=== PATIENT | male | born 1940 | race Caucasian/White ===

== ENCOUNTER 2016-04-12 14:05 | Inpatient (IN) ==
[2016-04-12] MEDS ORDERED: 0.9 % Sodium Chloride 500 ML IVC ONE ×2 (14:49→21:52)
--- NOTE | 2016-04-12 14:51 | Emergency Department Note ---
Disposition Clinical Impression: CHF exacerbation, New onset a-fib, Pleural effusion, bilateral, Elevated troponin I level Disposition: Admitted As Inpatient Condition: Fair General Adult HPI - General Chief complaint: ED Shortness of Breath/Dyspnea Stated complaint: "CHF" Time Seen by Provider: 04/12/16 14:42 Source: patient Limitations: no limitations - History of Present Illness Pain Scale: 0 - Related Data Home Medications Medication Instructions Recorded Confirmed No Known Home Drugs 04/12/16 04/12/16 Allergies Allergy/AdvReac Type Severity Reaction Status Date / Time No Known Allergies Allergy Verified 04/12/16 14:27 Past Medical History - Past Medical History Medical history: Reports: non-contributory - Social History Smoking Status: Never smoker Smokeless Tobacco Status: No Alcohol use: Reports: none Drug use: Reports: none Physical Exam - General Limitations: no limitations General appearance: alert, in no apparent distress Course Vital Signs Temperature 98.4 F 04/12/16 14:27 Pulse Rate 150 04/12/16 14:27 Respiratory Rate 15 04/12/16 14:27 Blood Pressure 133/100 04/12/16 14:27 O2 Sat by Pulse Oximetry 96 04/12/16 14:27 Temperature 97.4 F L 04/12/16 19:48 Pulse Rate 99 04/12/16 19:48 Respiratory Rate 22 04/12/16 19:48 Blood Pressure 88/70 04/12/16 19:52 O2 Sat by Pulse Oximetry 95 04/12/16 20:14 Oxygen Delivery Oxygen Delivery Nasal Cannula Medical Decision Making - Lab Data Result diagrams: 04/12/16 14:55 04/12/16 14:55 Lab Results 04/12/16 04/12/16 04/12/16 Range/Units 14:55 14:55 14:55 WBC 9.1 (4.3-11.1) K/mcL RBC 4.79 (4.19-5.50) M/mcL Hgb 13.0 (12.9-16.9) g/dL Hct 39.9 (37.5-50.1) % MCV 83.3 (83.0-100.0) fL MCH 27.1 L (28.0-33.3) pg MCHC 32.6 (31.6-35.5) g/dL RDW 14.1 (11.5-14.5) % Plt Count 250 (140-400) K/mcL MPV 10.1 (9.4-12.4) fL Immature Gran % 0.2 (0-4) % Seg Neutrophils % 58.9 % Lymphocytes % 29.7 % Monocytes % 9.1 % Eosinophils % 1.3 % Basophils % 0.8 % Neutrophils # 5.4 (1.6-8.9) K/mcL Lymphocytes # 2.7 (0.6-4.6) K/mcL Monocytes # 0.8 (0.0-1.3) K/mcL Eosinophils # 0.1 (0.0-0.6) K/mcL Basophils # 0.1 (0.0-0.2) K/mcL PT 13.2 H (9.4-12.1) Seconds INR 1.2 APTT 29.2 (26.0-36.0) Seconds Sodium 138 (136-145) mEq/L Potassium 4.2 (3.5-4.5) mEq/L Chloride 105 (98-109) mEq/L Carbon Dioxide 23 (19-29) mEq/L BUN 21 (8-26) mg/dL Creatinine 0.99 (0.72-1.25) mg/dL Est GFR ( Amer) > 60 (> 60) Est GFR (Non-Af Amer) > 60 (> 60) BUN/Creatinine Ratio 21 (6-26) Glucose 104 H (70-99) mg/dL Calculated Osmolality 289 (280-300) Calcium 9.5 (8.6-10.8) mg/dL Magnesium 2.0 (1.6-2.6) mg/dL Troponin I (0-0.03) ng/mL B-Natriuretic Peptide (0-100) pg/mL TSH 1.757 (0.350-4.840) mcIU/mL 04/12/16 04/12/16 Range/Units 14:55 14:55 WBC (4.3-11.1) K/mcL RBC (4.19-5.50) M/mcL Hgb (12.9-16.9) g/dL Hct (37.5-50.1) % MCV (83.0-100.0) fL MCH (28.0-33.3) pg MCHC (31.6-35.5) g/dL RDW (11.5-14.5) % Plt Count (140-400) K/mcL MPV (9.4-12.4) fL Immature Gran % (0-4) % Seg Neutrophils % % Lymphocytes % % Monocytes % % Eosinophils % % Basophils % % Neutrophils # (1.6-8.9) K/mcL Lymphocytes # (0.6-4.6) K/mcL Monocytes # (0.0-1.3) K/mcL Eosinophils # (0.0-0.6) K/mcL Basophils # (0.0-0.2) K/mcL PT (9.4-12.1) Seconds INR APTT (26.0-36.0) Seconds Sodium (136-145) mEq/L Potassium (3.5-4.5) mEq/L Chloride (98-109) mEq/L Carbon Dioxide (19-29) mEq/L BUN (8-26) mg/dL Creatinine (0.72-1.25) mg/dL Est GFR ( Amer) (> 60) Est GFR (Non-Af Amer) (> 60) BUN/Creatinine Ratio (6-26) Glucose (70-99) mg/dL Calculated Osmolality (280-300) Calcium (8.6-10.8) mg/dL Magnesium (1.6-2.6) mg/dL Troponin I 0.05 H* (0-0.03) ng/mL B-Natriuretic Peptide 1030 H (0-100) pg/mL TSH (0.350-4.840) mcIU/mL Critical Care Time Critical Care Time: Yes Total Critical Care Time: 30 Attestation: Patient presented in atrial flutter with RVR requiring Cardizem drip and admission to the medicine service Attestation Statement - Attestation Attestation: I examined this patient and my medical decision-making was reviewed with the REFERRAL AGENT/PA/Advanced Practice Nurse/Resident Physician. I agree with the documented findings, disposition and treatment plan as described except to the extent set forth below. Omkr-[id number] time provided in conjunction with Dr. Netltes Patient presents with tachycardia. ECG shows a narrow complex tachycardia suggestive of atrial flutter with rapid ventricular response. Patient appears in no acute distress. Per his spouse at bedside he has not seen a physician in 15 years and takes no medications other than aatc-zgy-jooaupc Mucinex and Robitussin. 15:33: Patient has a mildly elevated troponin and BNP. Chest x-ray image from previous facility reviewed by me with the resident physician. Cardizem drip initiated for rate control. Patient to be admitted to the medicine service
--- NOTE | 2016-04-12 14:56 | Emergency Department Note ---
Disposition Clinical Impression: New onset a-fib, Pleural effusion, bilateral, Elevated troponin I level CHF exacerbation Qualifiers: Congestive heart failure type: unspecified congestive heart failure type Qualified Code(s): I50.9 - Heart failure, unspecified Disposition: Admitted As Inpatient Condition: Fair Referrals: NO,PCP [Primary Care Provider] - Forms: ED Satisfaction Letter Time of Disposition: 17:04 Arrhythmia/Palpitations HPI - General Chief Complaint: ED Shortness of Breath/Dyspnea Stated Complaint: "CHF" Time Seen by Provider: 04/12/16 14:42 Source: patient Limitations: no limitations Nursing Notes Reviewed: Yes Vital Signs Reviewed: Yes - History of Present Illness HPI Narrative: 76-year-old male sent from urgent care in [facility], he presents after an acute episode of palpitations that he felt this morning. Patient was at rest, started feeling his heart racing. Patient had previously been having about a week of shortness of breath of unclear etiology. He states that he has been taking Robitussin lately and wonders if this is related. Patient denies history of CHF but reports a remote echocardiogram several years ago. History of hypertension. Patient denies any chest pain currently, he does state that he has difficulty catching his breath, and some exertional dyspnea today. Denies nausea vomiting diarrhea constipation hematuria or dysuria. Pt Subjective Complaint: rapid heart beat, irregular heart beat, atrial fibrillation Onset (ago): hour(s) Time: 08:00 Duration: constant Severity: moderate Context: occurred during rest Arrhythmia History: atrial fibrillation Associated symptoms: Reports: shortness of breath. Denies: chest pain, near- syncope, nausea, vomiting, anxiety, diaphoresis - Related Data Home Medications Medication Instructions Recorded Confirmed No Known Home Drugs 04/12/16 04/12/16 Allergies Allergy/AdvReac Type Severity Reaction Status Date / Time No Known Allergies Allergy Verified 04/12/16 14:27 Review of Systems: All systems were reviewed with historian and negative except as per below, or as documented in the HPI. Constitutional: Denies: fever, chills, weight changes Eyes: Denies: vision changes, eye pain ENT: Denies: nasal congestion, sore throat CV: Palpitations denies pedal edema, chest pain Resp: As per dyspnea denies hemoptysis GI: Denies: abdominal pain, N/V/D/C, hematochezia, melena Denies: dysuria, hematuria MSK: Denies: back pain, neck pain, extremity pain Neuro: Denies: NEGRETE, weakness, sensory changes, gait difficulty Psych: Denies: anxiety, depression All systems ED: reviewed and negative except as stated. Past Medical History - Past Medical History Attestation: Yes The following information was validated with the patient. Source: patient Medical history: Reports: non-contributory - Social History Smoking Status: Never smoker Smokeless Tobacco Status: No Alcohol use: Reports: none Drug use: Reports: none Physical Exam Constitutional: Thin elderly male appears stated age, mildly uncomfortable, heart rate 150s, irregular Neck: normal inspection, neck is supple, trachea midline, no JVD Resp: Diminished breath sounds bilaterally, right greater than left CV: Irregularly irregular, tachycardia, diminished heart sounds bilaterally GI: normal inspection, Soft, NTND, BS present and normoactive Back: normal inspection, no tenderness to palpation MSK: normal inspection, bilateral UE and LE with normal ROM and no deformities Psych: normal mood, normal affect Skin: No rashes, skin warm, dry, intact - General Limitations: no limitations General appearance: alert, in no apparent distress Course Course Narrative: 76-year-old male with new onset atrial fibrillation versus atrial flutter 150s, no evidence of ischemia on EKG, we will try Lopressor first chest pain workup reasses - Reevaluation(s) Reevaluation #1: No improvement after 5 mg of Lopressor, will began Cardizem bolus and drip, troponin came back 0.05, 324 mg of aspirin ordered, patient currently stable still plan to admit to hospitalist service for A. fib RVR CHF exacerbation bilateral pleural effusions Time: 15:38 Reevaluation #2: Admitted to Dr. Mtz Time: 17:04 Vital Signs Temperature 98.4 F 04/12/16 14:27 Pulse Rate 150 04/12/16 14:27 Respiratory Rate 15 04/12/16 14:27 Blood Pressure 133/100 04/12/16 14:27 O2 Sat by Pulse Oximetry 96 04/12/16 14:27 Temperature 98.4 F 04/12/16 14:27 Pulse Rate 147 04/12/16 15:25 Respiratory Rate 20 04/12/16 15:25 Blood Pressure 141/110 04/12/16 15:25 O2 Sat by Pulse Oximetry 98 04/12/16 15:25 Oxygen Delivery Oxygen Delivery Nasal Cannula Arrhythmia/Palpitations - [facility] Narrative Medical decision making narrative: 76-year-old male with new onset atrial fibrillation found to have heart failure BNP 1000 troponin mildly elevated 0.05 suspect demand ischemia given rate, started on Cardizem drip after bolus, is not cardioverted yet his heart rate is currently 130s, irregular, patient is in no acute distress, admitted to hospitalist service this in stable condition also at urgent care he did have evidence of bilateral pleural effusions with right sided greater than left sided moderate effusion, there is no respiratory distress at the time of ED disposition - Differential Diagnosis Differential Diagnosis: Likely: palpitations, sinus tachycardia, artial arrhythmia, supraventricular tachycardia, ventricular tachycardia - Medical Records Medical records reviewed: Yes I reviewed the patient's medical records. - Lab Data Lab results reviewed: Yes I reviewed the patient's lab results. Result diagrams: 04/12/16 14:55 04/12/16 14:55 Lab Results 04/12/16 04/12/16 04/12/16 Range/Units 14:55 14:55 14:55 WBC 9.1 (4.3-11.1) K/mcL RBC 4.79 (4.19-5.50) M/mcL Hgb 13.0 (12.9-16.9) g/dL Hct 39.9 (37.5-50.1) % MCV 83.3 (83.0-100.0) fL MCH 27.1 L (28.0-33.3) pg MCHC 32.6 (31.6-35.5) g/dL RDW 14.1 (11.5-14.5) % Plt Count 250 (140-400) K/mcL MPV 10.1 (9.4-12.4) fL Immature Gran % 0.2 (0-4) % Seg Neutrophils % 58.9 % Lymphocytes % 29.7 % Monocytes % 9.1 % Eosinophils % 1.3 % Basophils % 0.8 % Neutrophils # 5.4 (1.6-8.9) K/mcL Lymphocytes # 2.7 (0.6-4.6) K/mcL Monocytes # 0.8 (0.0-1.3) K/mcL Eosinophils # 0.1 (0.0-0.6) K/mcL Basophils # 0.1 (0.0-0.2) K/mcL PT 13.2 H (9.4-12.1) Seconds INR 1.2 APTT 29.2 (26.0-36.0) Seconds Sodium 138 (136-145) mEq/L Potassium 4.2 (3.5-4.5) mEq/L Chloride 105 (98-109) mEq/L Carbon Dioxide 23 (19-29) mEq/L BUN 21 (8-26) mg/dL Creatinine 0.99 (0.72-1.25) mg/dL Est GFR ( Amer) > 60 (> 60) Est GFR (Non-Af Amer) > 60 (> 60) BUN/Creatinine Ratio 21 (6-26) Glucose 104 H (70-99) mg/dL Calculated Osmolality 289 (280-300) Calcium 9.5 (8.6-10.8) mg/dL Magnesium 2.0 (1.6-2.6) mg/dL Troponin I (0-0.03) ng/mL B-Natriuretic Peptide (0-100) pg/mL 04/12/16 04/12/16 Range/Units 14:55 14:55 WBC (4.3-11.1) K/mcL RBC (4.19-5.50) M/mcL Hgb (12.9-16.9) g/dL Hct (37.5-50.1) % MCV (83.0-100.0) fL MCH (28.0-33.3) pg MCHC (31.6-35.5) g/dL RDW (11.5-14.5) % Plt Count (140-400) K/mcL MPV (9.4-12.4) fL Immature Gran % (0-4) % Seg Neutrophils % % Lymphocytes % % Monocytes % % Eosinophils % % Basophils % % Neutrophils # (1.6-8.9) K/mcL Lymphocytes # (0.6-4.6) K/mcL Monocytes # (0.0-1.3) K/mcL Eosinophils # (0.0-0.6) K/mcL Basophils # (0.0-0.2) K/mcL PT (9.4-12.1) Seconds INR APTT (26.0-36.0) Seconds Sodium (136-145) mEq/L Potassium (3.5-4.5) mEq/L Chloride (98-109) mEq/L Carbon Dioxide (19-29) mEq/L BUN (8-26) mg/dL Creatinine (0.72-1.25) mg/dL Est GFR ( Amer) (> 60) Est GFR (Non-Af Amer) (> 60) BUN/Creatinine Ratio (6-26) Glucose (70-99) mg/dL Calculated Osmolality (280-300) Calcium (8.6-10.8) mg/dL Magnesium (1.6-2.6) mg/dL Troponin I 0.05 H* (0-0.03) ng/mL B-Natriuretic Peptide 1030 H (0-100) pg/mL - Radiology Data Radiology results reviewed: Yes I reviewed the patient's radiology results. - EKG Data EKG attestation: Yes I reviewed and interpreted this EKG. Rate: tachycardia Rhythm: A.Fib (151 bpm QRS 85 QTC 281) Encampment/QRS: normal Interpretation: no acute changes - Core Measures AMI Core Measures Followed: No Measure Exclusions: not indicated
[2016-04-12 15:03] LABS: Basophils # 0.1 K/mcL (0.0-0.2); Basophils % 0.8 %; Eosinophils # 0.1 K/mcL (0.0-0.6); Eosinophils % 1.3 %; Hematocrit 39.9 % (37.5-50.1); Immature Granulocytes % 0.2 % (0-4); Lymphocytes # 2.7 K/mcL (0.6-4.6); Lymphocytes % 29.7 %; Mean Corpuscular HGB Conc 32.6 g/dL (31.6-35.5); Mean Corpuscular Hemoglobin 27.1 pg (28.0-33.3); Mean Corpuscular Volume 83.3 fL (83.0-100.0); Mean Platelet Volume 10.1 fL (9.4-12.4); Monocytes # 0.8 K/mcL (0.0-1.3); Monocytes % 9.1 %; Neutrophils # 5.4 K/mcL (1.6-8.9); Platelet Count 250 K/mcL (140-400); Red Blood Count 4.79 M/mcL (4.19-5.50); Red Cell Distribution Width 14.1 % (11.5-14.5); Segmented Neutrophils % 58.9 %
[2016-04-12] MEDS: *HR* Metoprolol 5 MG/5 ML VIAL IVP ONE ×2 (15:04→18:36)
[2016-04-12 15:09] LABS: INR 1.2; Prothrombin Time 13.2 Seconds (9.4-12.1)
[2016-04-12 15:12] LABS: Activated Partial Thrombo Time 29.2 Seconds (26.0-36.0)
[2016-04-12 15:15] LABS: BUN/Creatinine Ratio 21 (6-26); Blood Urea Nitrogen 21 mg/dL (8-26); Calcium 9.5 mg/dL (8.6-10.8); Carbon Dioxide 23 mEq/L (19-29); Chloride 105 mEq/L (98-109); Glucose 104 mg/dL (70-99); Osmolality,Calculated 289 (280-300); Potassium 4.2 mEq/L (3.5-4.5); Sodium 138 mEq/L (136-145); eGFR For African Americans > 60 (> 60); eGFR For Non-African Americans > 60 (> 60)
[2016-04-12] MEDS ORDERED: Aspirin 325 MG TABLET PO ONE (15:29)
[2016-04-12 15:38] LABS: Thyroid Stimulating Hormone 1.757 mcIU/mL (0.350-4.840)
[2016-04-12] MEDS ORDERED: 0.9 % Sodium Chloride 250 ML ONE (16:18)
[2016-04-12] MEDS ORDERED: Naloxone 0.4 MG/ML INJ IVP PRN (17:17)
[2016-04-12] MEDS ORDERED: Acetaminophen 325 MG TABLET PO PRN (17:17)
--- NOTE | 2016-04-12 17:30 | Internal Med History&Physical ---
Date of Encounter: 04/14/16 Time of Encounter: 17:24 Assessment and Plan (1) New onset a-fib Current visit: Yes Status: Acute New onset of atrial fibrillation: Patient has new onset of atrial fibrillation likely has 2 is to 1. No previous cardiac history. [id number] score is 3 Plan: -Admitted as an inpatient. -Cardiac diet. -IV Cardizem 5 mg per hour to start and titrate to get the heart rate between 90 and 110. - Anticoagulation with 1 mg/kg Lovenox. - Cardiology evaluation after a echocardiogram. -Fall precaution. (2) Elevated troponin I level Current visit: Yes Status: Acute Likely secondary to atrial fibrillation with rapid ventricular rate (3) Congestive heart failure Current visit: Yes Status: Chronic Clinical diagnosis which needs further workup Qualifiers: Congestive heart failure type: systolic Congestive heart failure chronicity : unspecified congestive heart failure chronicity Qualified Code(s): I50.20 - Unspecified systolic (congestive) heart failure (4) DVT prophylaxis Current visit: Yes Status: Acute lovenox Medical decision making: Patient may worsen and has a zhka-wn-gqvwcesa risk of worsening cardiac perfusion. Internal Medicine - H&P: HPI Chief complaint: palpitations Admitted From: Emergency Dept Plans for Post Hospital Care: Home History of present illness: PCP: No PCP, has not seen doctor in last 15 years. HPI: Patient is ongoing weakness and shortness of breath for more than 2 weeks. Patient also complaining of occasional cough with palpitations. Patient was taking viac-pok-xxbhiic medication for the same for the past 1 week. In the last 48 hours patient's symptom worsen. Patient's shortness of breath was associated with the palpitations. Due to same patient went to urgent care at [facility] this morning. Patient was sent from [facility] as it was noted that his heart rate was more than 150. Patient denies chest pain, dizziness, syncope, abdominal pain, vomiting or diarrhea. Course in the ER: Patient was evaluated. EKG was done. EKG was suggestive of atrial fibrillation with rapid ventricular rate. Patient was started on Cardizem drip. Rate was controlled. Reason for admission: New-onset of atrial fibrillation with rapid ventricular. Patient needs intravenous medication therapy. Family history: Noncontributory Past Med Surg Social Fam HX - Past Medical History Medical history: non-contributory - Social History Smoking Status: Never smoker Smokeless Tobacco Status: No Alcohol use: none Drug use: none Internal Medicine - H&P: Meds No Known Home Drugs 04/12/16 [History] Allergies No Known Allergies Allergy (Verified 04/12/16 14:27) All Systems PM: A 10-system review of systems was performed and is negative for pertinent findings except as documented above in the HPI. - Constitutional Constitutional: no chills, no fever(s), no night sweats - EENT Eyes: no change in vision, no discharge, no pain, no photophobia Ears: no ear discharge, no ear pain, no tinnitus Nose, mouth and throat: no dysphagia, no nasal discharge, no neck pain, no sore throat - Cardiovascular Cardiovascular ROS IM: palpitations, no chest pain, no diaphoresis, no dyspnea, no lightheadedness, no syncope - Respiratory Respiratory: no cough, no dyspnea, no wheezing, no excessive phlegm production - Gastrointestinal Gastrointestinal: no abdominal pain, no diarrhea, no hematemesis, no hematochezia, no melena, no nausea, no vomiting - Musculoskeletal Musculoskeletal ROS IM: no numbness, no tingling - Integumentary Integumentary IM: no rash, no unusual bruising - Neurological Neurological ROS: no confusion, no convulsions, no focal weakness, no numbness, no tingling, no tremor(s) - Hematologic/Lymphatic Hematologic/Lymphatic: no easy bruising - Constitutional Vitals: Temp Pulse Resp BP Pulse Ox 98.4 F 131 18 115/92 96 04/12/16 14:27 04/12/16 16:54 04/12/16 16:59 04/12/16 16:59 04/12/16 16:54 General appearance: Present: A&O X 3, pleasant, no acute distress, answers questions appropriately - Head Head exam: Present: atraumatic, normocephalic - Eye Eye exam: Present: PERRL, conjuntiva pink, sclera anicteric Pupils: Present: PERRL - Neck Neck exam general surgery: Present: supple, trachea midline. Absent: lymphadenopathy - Respiratory Respiratory exam: Present: CTAB. Absent: accessory muscle use, rales, rhonchi, wheezes - Cardiovascular Cardiovascular exam: Present: RRR, +S1, +S2. Absent: diastolic murmur, gallop, rubs, systolic murmur - GI/Abdominal GI/Abdominal exam: Present: normal bowel sounds, soft, no peritoneal signs. Absent: distended, tenderness - Extremities Exam Extremities exam: Present: warm, radial pulses palpable and symetrical. Absent : calf tenderness, cyanotic, pedal edema - Neurological Exam Neurological exam: Present: CN II-XII intact, oriented X3, no focal deficits. Absent: pronater drift, facial droop, speech deficit - Skin Skin exam: Present: dry, intact Internal Med - H&P Results - Labs CBC & Chem 7: 04/13/16 00:28 04/13/16 00:28
[2016-04-12] MEDS ORDERED: *HR* Metoprolol 5 MG/5 ML VIAL IVP ONE (18:28)
[2016-04-12] MEDS: *HR* Enoxaparin 60 MG/0.6 ML SYRINGE SQ SCH (18:33)
[2016-04-13 01:06] LABS: Basophils # 0.1 K/mcL (0.0-0.2); Basophils % 0.8 %; Eosinophils # 0.2 K/mcL (0.0-0.6); Eosinophils % 2.1 %; Hematocrit 33.8 % (37.5-50.1); Immature Granulocytes % 0.4 % (0-4); Lymphocytes # 2.3 K/mcL (0.6-4.6); Lymphocytes % 30.2 %; Mean Corpuscular HGB Conc 32.5 g/dL (31.6-35.5); Mean Corpuscular Volume 82.8 fL (83.0-100.0); Mean Platelet Volume 10.6 fL (9.4-12.4); Monocytes # 0.8 K/mcL (0.0-1.3); Monocytes % 10.1 %; Neutrophils # 4.2 K/mcL (1.6-8.9); Platelet Count 239 K/mcL (140-400); Red Blood Count 4.08 M/mcL (4.19-5.50); Red Cell Distribution Width 14.2 % (11.5-14.5); Segmented Neutrophils % 56.4 %
[2016-04-13 01:27] LABS: Alanine Aminotransferase 25 Units/L (0-55); Albumin 3.2 g/dL (3.5-5.0); Albumin/Globulin Ratio 1.1 (1.1-2.2); Alkaline Phosphatase 101 Units/L (38-126); Aspartate Amino Transferase 32 Units/L (5-34); BUN/Creatinine Ratio 23 (6-26); Blood Urea Nitrogen 21 mg/dL (8-26); Calcium 8.7 mg/dL (8.6-10.8); Carbon Dioxide 22 mEq/L (19-29); Chloride 106 mEq/L (98-109); Chol/HDL Ratio 3.2 (0-4.9); Cholesterol 110 mg/dL (< 200); Globulin 2.8 g/dL (2.4-3.5); Glucose 105 mg/dL (70-99); HDL Cholesterol 34 mg/dL (40-59); LDL Cholesterol,Calculated 62 mg/dL (0-99); Magnesium 1.9 mg/dL (1.6-2.6); Osmolality,Calculated 285 (280-300); Phosphorous 3.8 mg/dL (2.3-4.7); Potassium 4.1 mEq/L (3.5-4.5); Sodium 136 mEq/L (136-145); Triglycerides 72 mg/dL (< 150); eGFR For African Americans > 60 (> 60); eGFR For Non-African Americans > 60 (> 60)
[2016-04-13] MEDS ORDERED: Metoprolol XL (24 HR) Succ 25 MG TAB.ER.24H PO SCH (06:57)
[2016-04-13] MEDS: *HR* Enoxaparin 60 MG/0.6 ML SYRINGE SQ SCH ×3 (06:59→17:16)
[2016-04-13] MEDS: *HR* Metoprolol 5 MG/5 ML VIAL IVP PRN ×3 (07:09→21:20)
[2016-04-13] MEDS ORDERED: *HR* Morphine 2 MG/ML SYRINGE ONE (07:21)
[2016-04-13] MEDS: *HR* Digoxin 0.5 MG/2 ML AMPUL IVP STA ×3 (07:32→09:30)
[2016-04-13] MEDS ORDERED: *HR* Morphine 2 MG/ML SYRINGE IVP ONE (07:35)
[2016-04-13] MEDS ORDERED: Furosemide 20 MG/2 ML VIAL IVP ONE (08:45)
--- NOTE | 2016-04-13 09:58 | Electrocardiograph Report ---
[address] [address] Test Date: 2016-04-12 Pat Name: Micah Rodriguez Department: 103 Room: [facility] Gender: M Count Room Clerk: : 1940 Requested By: Daryl Nettles Order Number: [id number] Reading MD: Carla Figueroa Measurements Intervals [place] Rate: 151 P: FL: 0 QRS: 67 QRSD: 85 T: 120 QT: 195 QTc: 281 Interpretive Statements ATRIAL FLUTTER/TACHYCARDIA WITH RAPID VENTRICULAR RESPONSE NONSPECIFIC ST \T\ T-WAVE ABNORMALITY ABNORMAL RHYTHM ECG Electronically Signed On 04-13-2016 9:57:16 EST by Carla Figueroa
--- NOTE | 2016-04-13 10:55 | ECHO - Doppler Report ---
Echocardiogram Name: Micah Rodriguez Date of Study: 04/13/2016 Date: 1940 Ht: 68.0 in Medical Record#: [id number] Age: 76 Wt: 141.0 lb Gender: Male BSA: 1.76 Order #: [id number] Location: [facility] Room #: [id number] Reading Physician: Nash Murphy MD, [facility] Heat Treat Technician: Echo Gong RD, RVT Ordering Physician: Ulises Mtz MD Primary Physician: None Indications: Atrial Fibrillation Impressions: Mild-moderate LV systolic dysfunction, LVEF 40%. There are regional wall motion abnormalities, see diagram below. Mild asymmetric LV septal hypertrophy. No evidence of LVOT obstruction. Indeterminate diastolic function due to atrial flutter. Normal right ventricular size and function. Moderate-severely dilated left atrium. Moderate-severely dilated right atrium. Mildly thickened mitral valve leaflets. There is restricted motion of the posterior mitral valve leaflet with incomplete leaflet coaptation. Severe mitral regurgitation. Mild-moderate tricuspid regurgitation. Mild pulmonic regurgitation. Mild pulmonary hypertension. Estimated RVSP = 44 mmHg. Recommend cardiology consultation. Abnormal results were discussed with the ordering physician. Cardiology consult team was also notified. Left Ventricular Wall Motion: Rest Echo Findings The apex, apical septal, apical lateral, mid anterior lateral, mid anterior septal and mid inferior lateral dunaway were hypokinetic. All other wall segments showed normal motion. Findings: Study Quality * Technically adequate exam. ECG Findings * Atrial flutter. Left Ventricle * Mild-moderate LV systolic dysfunction, LVEF 40%. There are regional wall motion abnormalities, see diagram below. * Mild asymmetric LV septal hypertrophy. No evidence of LVOT obstruction. * Indeterminate diastolic function due to atrial flutter. Right Ventricle * Normal right ventricular size and function. Left Atrium * Moderate-severely dilated left atrium. Right Atrium * Moderate-severely dilated right atrium. Aorta * Normally sized aortic root. Pericardium * There is a trivial pericardial effusion present. IVC * The IVC is borderline dilated. Aortic Valve * Trileaflet aortic valve. * Mildly sclerotic aortic valve leaflets. * No aortic stenosis. * Trace aortic regurgitation. Mitral Valve * Mildly thickened mitral valve leaflets. There is restricted motion of the posterior mitral valve leaflet with incomplete leaflet coaptation. * No mitral stenosis. * Severe mitral regurgitation. Tricuspid Valve * Normal tricuspid valve structure. * No tricuspid stenosis. * Mild-moderate tricuspid regurgitation. * Mild pulmonary hypertension. Estimated RVSP = 44 mmHg. Pulmonic Valve * Pulmonic valve not well visualized. * No pulmonic stenosis. * Mild pulmonic regurgitation. Measurements: BP: 106/ 96 2D Normal Values RVIDd: 3.10 cm IVSd: 1.20 cm 0.6 - 1.0 cm LVIDd: 4.40 cm 3.7 - 5.6 cm LVPWd: .90 cm 0.6 - 1.1 cm LVIDs: 2.60 cm 1.5 - 3.6 cm AO: 3.30 cm < 4.0 cm LA volume: 78 Tricuspid Valve TV Regurg Peak Grad: 36.00mmHg TV Regurg Peak Sumit: 2.99m/sec Updated by Nash Murphy MD, [facility] on 04/13/2016 10:47:23 AM electronically signed on 04/13/2016 10:48:14 AM with status of Final Wall Motion Branch: 1=Normal, 2=Hypokinesis, 3=Akinesis, 4=Dyskinesis, 5=Aneurysmal, 6=Hyperkinetic, X=Not Visualized (Blank)=Missing
--- NOTE | 2016-04-13 11:25 | Internal Med Progress Note ---
Date of Encounter: 04/13/16 Time of Encounter: 11:24 - Assessment and plan (1) Atrial flutter Current Visit: Yes Status: Acute Assessment and plan: New-onset; has been on IV Cardizem drip, currently rate-controlled; noted to have low normal BP; will taper off Cardizem drip and start PO Metoprolol for now ; continue therapeutic Lovenox for anticoagulation; Cardiology consult appreciated; plan for LHC in am and decide on ablation vs MAZE procedure; Qualifiers: Atrial flutter type: atypical Qualified Code(s): I48.4 - Atypical atrial flutter (2) Chest pain Current Visit: Yes Status: Acute Assessment and plan: improving; use PRN IV Morphine for recurrent chest pain, likely tachycardia- induced; Qualifiers: Chest pain type: unspecified Qualified Code(s): R07.9 - Chest pain, unspecified (3) Elevated troponin I level Current Visit: Yes Status: Acute Assessment and plan: mild adynamic Troponin leak, likely tachycardia-induced; continue Telemetry monitoring and HR control; Cardiology consult appreciated; plan for LHC in am; (4) Pleural effusion, bilateral Current Visit: Yes Status: Acute (5) Severe mitral regurgitation Current Visit: Yes Status: Chronic Assessment and plan: Echocardiogram shows decreased EF 40%, moderate-severe LA and RA dilation, severe MR, mild-moderate TR, mild pulmonary HTN; mitral valve disease appears to be ischemic in appearance per Cardiology; plan for LHC and decide on further management; agree with beta-christiane, diuretics; ACEI at the time of discharge; (6) Congestive heart failure Current Visit: Yes Status: Chronic Assessment and plan: 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 Received 10 mg IV Cardizem, 0.25 g IV digoxin, 5 mg IV metoprolol during rapid response.also received 2 mg IV morphine with improvement in chest pain. Currently chest pain-free during rounds. No shortness of breath, palpitations; has not seen a physician in 15years, no known medical history; plan of care explained to patient and at bedside; - Constitutional Vitals: Temp Pulse Resp BP Pulse Ox 97.7 F 85 14 103/70 95 04/13/16 04:20 04/13/16 09:15 04/13/16 08:45 04/13/16 09:15 04/13/16 08:30 General appearance: Present: A&O X 3, answers questions appropriately - Head Head exam: Present: atraumatic, normocephalic - Neck Neck exam general surgery: Present: supple, trachea midline. Absent: lymphadenopathy - Respiratory Respiratory exam: Present: CTAB, wheezes (mild wheezing B/L scattered, posteriorly). Absent: accessory muscle use, rales, rhonchi - Cardiovascular Cardiovascular exam: Present: RRR, +S1, +S2. Absent: diastolic murmur, gallop, rubs, systolic murmur - GI/Abdominal GI/Abdominal exam: Present: normal bowel sounds, soft, no peritoneal signs. Absent: distended, tenderness - Extremities Exam Extremities exam: Present: full ROM, warm, radial pulses palpable and symetrical. Absent: calf tenderness, cyanotic, pedal edema - Neurological Exam Neurological exam: Present: CN II-XII intact, oriented X3, no focal deficits. Absent: pronater drift, facial droop, speech deficit - Skin Skin exam: Present: dry, intact Internal Medicine: Result - Labs CBC & Chem 7: 04/13/16 00:28 04/13/16 00:28 Labs: Short CBC 04/13/16 Range/Units 00:28 WBC 7.5 (4.3-11.1) K/mcL Hgb 11.0 L D (12.9-16.9) g/dL Hct 33.8 L (37.5-50.1) % Plt Count 239 (140-400) K/mcL Neutrophils # 4.2 (1.6-8.9) K/mcL BMP 04/13/16 00:28 Sodium 136 Potassium 4.1 Chloride 106 Carbon Dioxide 22 BUN 21 Creatinine 0.91 Glucose 105 H Calcium 8.7 Cardiac Enzymes 04/12/16 04/13/16 04/13/16 Range/Units 22:31 00:28 05:38 Troponin I 0.04 H* 0.04 H* 0.05 H* (0-0.03) ng/mL Liver Function 04/13/16 Range/Units 00:28 Total Bilirubin 1.0 (0.2-1.2) mg/dL AST 32 (5-34) Units/L ALT 25 (0-55) Units/L Alkaline Phosphatase 101 (38-126) Units/L Albumin 3.2 L (3.5-5.0) g/dL - ABG Interpretation ABG results: PT/INR, D-dimer PT 13.2 Seconds (9.4-12.1) H 04/12/16 14:55 Consult Discharge Plan - Plan Referrals: Tono Roth MD [Non-Partnered Physician] -
--- NOTE | 2016-04-13 11:52 | Electrocardiograph Report ---
[address] [place] [address] Test Date: 2016-04-13 Pat Name: Micah Rodriguez Department: 111 Room: 2NE32 Gender: M Finance Consultant: : 1940 Requested By: Apple Friedman Order Number: [id number] Reading MD: Carla Figueroa Measurements Intervals [place] Rate: 150 P: [place]: 0 QRS: 73 QRSD: 90 T: 120 QT: 171 QTc: 257 Interpretive Statements ATRIAL FLUTTER WITH RAPID VENTRICULAR RESPONSE POSSIBLE INFERIOR MYOCARDIAL INFARCTION, PROBABLY OLD WITH POSTERIOR EXTENSION Electronically Signed On 04-13-2016 11:50:55 EST by Carla Figueroa
--- NOTE | 2016-04-13 12:11 | Cardiology Consult Note ---
Date of Encounter: 04/13/16 Time of Encounter: 12:07 Assessment and Plan (1) CHF exacerbation Current Visit: Yes Status: Acute Echo EF 40% with regional wall motion abnormalities--new diagnosis. CXR with bilateral pleural effusions--R>L. Initial BNP 1030, then 833. Has received one time dose of 20mg IV Lasix with improvement in dyspnea. Will diurese with IV Lasix 20mg BID. Recommend strict I/O, Na and fluid restriction, daily weights. K 4.1, Mag 1.9. Will need ischemic evaluation when able to lie flat. Possible LHC tomorrow. R/B/ A discussed. Pt and want to discuss with son before agreeing to proceed. Qualifiers: Congestive heart failure type: combined Qualified Code(s): I50.43 - Acute on chronic combined systolic (congestive) and diastolic (congestive) heart failure (2) Cardiomyopathy Current Visit: Yes Status: Acute EF 40% with regional wall motion abnormalities. Presumed ischemic until proven otherwise. Also with severe MR that is ischemic appearing in nature. Recommend [facility] for evaluation. R/B/A discussed. Pt and want to discuss with son first. Switch cardizem to BB. Recommend adding LOU-I prior to discharge if BP and renal function allow. Will not add at this time since we are diuresing and anticipate plan for LHC. Qualifiers: Cardiomyopathy type: unspecified Qualified Code(s): I42.9 - Cardiomyopathy , unspecified (3) Atrial flutter Current Visit: Yes Status: Acute Reviewed with Dr. Lee--appears to be atypical Atrial Flutter. Will review with EP, Dr. Micah Figueroa tomorrow. New diagnosis, unsure of onset. Currently on Cardizem gtt with rates in the 70s. Since EF is 40% and BP is marginal, recommend switching to BB for rate control. Will stop cardizem gtt and start Toprol XL. CHADSVASC currently 3 for CHF and age, but if has confirmed CAD diagnosis, will be higher. 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 Therapeutic Lovenox for now since he needs LHC. Mag 1.9, K 4.1, TSH 1.757. Depending on cath results can discuss A-Flutter ablation or MAZE procedure. Qualifiers: Atrial flutter type: atypical Qualified Code(s): I48.4 - Atypical atrial flutter (4) Severe mitral regurgitation Current Visit: Yes Status: Acute Severe MR--ischemic appearance on Echo. Mildly thickened MV leaflets with restricted motion of posterior mitral valve leaflet and incomplete leaflet coaptation. Recommend LHC for ischemic evaluation with further recommendations pending cath results. (5) Elevated troponin I level Current Visit: Yes Status: Acute Flat and adynamic--0.05, 0.04, 0.04, 0.05 in setting of acute systolic and diastolic CHF, A-Flutter with RVR. Likely demand ischemia, nondiagnostic for ACS. Pt warrants LHC due to new CMP EF 40%. On therapeutic Lovenox for A-Flutter, ASA, Statin, start BB. (6) Chest pain Current Visit: Yes Status: Acute Occurred this AM when in A-Flutter with RVR. Now chest pain free and HR in 70s. Troponins flat and adynamic--likely demand ischemia. Warrants LHC for newly discovered EF of 40%--wall motion abnormalities and ischemic appearing severe MR. Qualifiers: Chest pain type: unspecified Qualified Code(s): R07.9 - Chest pain, unspecified Discussion w patient/family: The assessment and plan as outlined above was discussed with the patient and/or family members who expressed understanding and agreement. All questions were answered. Thank you for involving us in the care of your patient. Please call with any questions. I will discuss all the above with Dr. Lee and make changes as necessary. History of Present Illness Consult date: 04/13/16 Requesting physician: Rosey Friedman Consult reason: CHF, A-Flutter Chief complaint: Dyspnea History of present illness: Mr. Rodriguez is a 76 year old male that has not seen a healthcare provider in over 20 years that presented with chief complaint of dyspnea over the past 2 weeks, recently accompanied with cough and lower extremity edema. On presentation he was found to be in A-Flutter. BNP initially 1030, now 833. CXR showed bibasiar opacities with bilateral pleural effusions, right greater than left. Rapid response was called this morning for severe chest pain with HR 150s A-Flutter. Troponin peak 0.05. Echo resulted--EF 40% with regional wall motion abnormalities. Moderate-severely dilated LA and RA. Severe MR--ischemic appearing in nature. Mild-moderate TR. Cardiology was consulted. Pt reports breathing has improved after Lasix. Currently chest pain free. HR 70s at bedside A-Flutter on Cardizem gtt. Pt denies tobacco abuse or alcohol intake. Does have family hx of CAD--father with CABG in his 60s. Past Med Surg Social Fam HX - Past Medical History Medical history: non-contributory - Social History Smoking Status: Never smoker Smokeless Tobacco Status: No Alcohol use: none Drug use: none Medications and Allergies No Known Home Drugs 04/12/16 [History] Allergies No Known Allergies Allergy (Verified 04/12/16 14:27) All Systems Review: A 10-system review of systems was performed and is negative for pertinent findings except as documented above in the HPI. - Cardiovascular Cardiovascular: as per HPI, chest pain at rest, chest pain with exertion, dyspnea at rest, dyspnea on exertion, leg edema, orthopnea - Respiratory Respiratory: cough, dyspnea Physical Examination Vital Signs, Last 4 Hours Pulse Resp BP Pulse Ox 04/13/16 09:15 85 103/70 04/13/16 09:00 77 100/68 04/13/16 08:45 72 14 108/68 04/13/16 08:30 72 16 111/77 95 Vital Signs Temp Pulse Resp BP Pulse Ox 04/13/16 09:15 85 103/70 04/13/16 09:00 77 100/68 04/13/16 08:45 72 14 108/68 04/13/16 08:30 72 16 111/77 95 04/13/16 08:00 94 129/76 04/13/16 07:47 87 122/74 04/13/16 07:45 80 04/13/16 07:30 110 126/92 04/13/16 07:25 148 127/95 04/13/16 07:20 148 145/105 04/13/16 07:18 149 134/126 04/13/16 07:00 151 24 143/102 96 04/13/16 06:00 127/72 04/13/16 05:45 141 102/91 04/13/16 05:30 109/61 04/13/16 05:15 109 110/102 04/13/16 05:00 138 99/72 04/13/16 04:52 75 110/68 04/13/16 04:21 138 106/96 04/13/16 04:20 97.7 F 118 16 106/96 94 L 04/13/16 00:40 120 96/86 04/13/16 00:30 120 98/80 04/13/16 00:20 120 95/78 04/13/16 00:10 121 98/91 04/13/16 00:00 120 99/65 04/12/16 23:50 133 99/79 04/12/16 23:41 98.3 F 117 18 101/87 95 04/12/16 23:40 109 101/87 04/12/16 23:20 120 97/76 04/12/16 23:10 121 94/62 04/12/16 22:50 120 84/68 04/12/16 22:40 120 94/74 04/12/16 22:30 121 100/56 04/12/16 22:20 111 81/66 04/12/16 22:10 120 96/76 04/12/16 22:00 122 94/78 04/12/16 21:50 119 96/62 04/12/16 21:40 132 95/80 04/12/16 21:30 119 107/82 04/12/16 21:20 110 82/67 04/12/16 21:10 120 100/73 04/12/16 21:00 119 85/69 04/12/16 20:50 100 104/70 04/12/16 20:40 119 100/72 04/12/16 20:30 100 110/67 04/12/16 20:20 100 102/66 04/12/16 20:14 95 04/12/16 20:12 99 98/67 04/12/16 19:52 75 88/70 04/12/16 19:48 97.4 F L 99 22 88/58 95 04/12/16 19:47 99 16 94 L 04/12/16 19:30 74 85/69 04/12/16 19:10 117 95/77 04/12/16 18:30 149 113/87 04/12/16 17:24 144 16 128/92 98 04/12/16 16:59 18 115/92 04/12/16 16:54 131 18 115/92 96 04/12/16 16:30 130 19 110/91 96 04/12/16 16:06 117 19 105/91 96 04/12/16 15:48 145 19 128/105 95 04/12/16 15:25 147 20 141/110 98 04/12/16 15:12 148 18 136/117 99 04/12/16 15:01 99 04/12/16 14:27 98.4 F 150 15 133/100 96 Intake and Output 04/12/16 04/13/16 04/13/16 23:59 07:59 15:59 Intake Total 56.8 / 56.8 318.2 / 318.2 35 / 35 Balance 56.8 / 56.8 318.2 / 318.2 35 / 35 Intake: IV Fluids 56.8 / 56.8 318.2 / 318.2 35 / 35 ALBURX 5% 12.5 gm In 250 250 / 250 ml @ 60 mls/hr IVC . Q4H10M [facility] Rx#:[id number] Cardizem 125 MG In 56.8 / 56.8 68.2 / 68.2 35 / 35 Dextrose 5% 100 ML @ 5 MG /HR 5 mls/hr IVC .Q24H [facility] Rx#:[id number] Other: Stool Size Small Stool Consistency soft Weight 62.8 kg 64.4 kg Patient Weight 04/13/16 23:59 Weight 64.4 kg General: Conversant, No Apparent Distress HEENT: Atraumatic, Normocephaly, Mucus Membranes Moist Neck: Normal carotid pulses Cardiac: Other (irregular) Lungs: Other (diminished) Neuro: Alert and responsive, No focal deficits noted Abdomen: Soft, Non-Tender Skin: No rashes noted on visualized skin Musculoskeletal: No Chest Wall Tenderness Extremities: Other (1+ BLE edema) Results 04/13/16 00:28 04/13/16 00:28 Lab Results 04/12/16 04/13/16 04/13/16 22:31 00:28 00:28 WBC 7.5 Hgb 11.0 L D Hct 33.8 L Plt Count 239 Sodium Potassium Chloride Carbon Dioxide BUN Creatinine Glucose Calcium Magnesium Total Bilirubin AST ALT Alkaline Phosphatase Troponin I 0.04 H* 0.04 H* B-Natriuretic Peptide 04/13/16 04/13/16 04/13/16 00:28 00:28 05:38 WBC Hgb Hct Plt Count Sodium 136 Potassium 4.1 Chloride 106 Carbon Dioxide 22 BUN 21 Creatinine 0.91 Glucose 105 H Calcium 8.7 Magnesium 1.9 Total Bilirubin 1.0 AST 32 ALT 25 Alkaline Phosphatase 101 Troponin I 0.05 H* B-Natriuretic Peptide 833 H Short CBC 04/13/16 04/12/16 Range/Units 00:28 14:55 WBC 7.5 9.1 (4.3-11.1) K/mcL Hgb 11.0 L D 13.0 (12.9-16.9) g/dL Hct 33.8 L 39.9 (37.5-50.1) % Plt Count 239 250 (140-400) K/mcL Neutrophils # 4.2 5.4 (1.6-8.9) K/mcL BMP 04/13/16 04/12/16 Range/Units 00:28 14:55 Sodium 136 138 (136-145) mEq/L Potassium 4.1 4.2 (3.5-4.5) mEq/L Chloride 106 105 (98-109) mEq/L Carbon Dioxide 22 23 (19-29) mEq/L BUN 21 21 (8-26) mg/dL Creatinine 0.91 0.99 (0.72-1.25) mg/dL Glucose 105 H 104 H (70-99) mg/dL Calcium 8.7 9.5 (8.6-10.8) mg/dL Cardiac Enzymes 04/13/16 04/13/16 04/12/16 Range/Units 05:38 00:28 22:31 Troponin I 0.05 H* 0.04 H* 0.04 H* (0-0.03) ng/mL 04/12/16 Range/Units 14:55 Troponin I 0.05 H* (0-0.03) ng/mL Liver Function 04/13/16 Range/Units 00:28 Total Bilirubin 1.0 (0.2-1.2) mg/dL AST 32 (5-34) Units/L ALT 25 (0-55) Units/L Alkaline Phosphatase 101 (38-126) Units/L Albumin 3.2 L (3.5-5.0) g/dL Active Medications Acetaminophen (Tylenol) 650 mg PO Q6HR PRN PRN Reason: Mild Pain (1-3) Stop: 10/12/16 17:18 Aspirin (Aspirin Ec) 81 mg PO DAILY [facility] Stop: 10/13/16 09:01 Atorvastatin Calcium (Lipitor) 20 mg PO HS NGA Stop: 10/12/16 21:01 Last Admin: 04/12/16 22:55 Dose: 20 mg Docusate Sodium (Colace) 100 mg PO BID PRN PRN Reason: Constipation Stop: 10/12/16 17:18 Enoxaparin Sodium (Lovenox) 60 mg 1 mg/kg (60 mg) SQ Q12H NGA PRN Reason: Protocol Stop: 10/12/16 18:01 Last Admin: 04/13/16 09:55 Dose: 60 mg Diltiazem HCl 125 mg/ Dextrose 125 mls @ 5 mls/hr IVC .Q24H NGA PRN Reason: 5 MG/HR Stop: 10/12/16 18:31 Last Infusion: 04/13/16 08:19 Dose: 12.5 mg/hr, 12.5 mls/hr Metoprolol Tartrate (Lopressor) 5 mg IVP Q6HR PRN PRN Reason: Tachyarrhythmias Stop: 10/13/16 06:57 Last Admin: 04/13/16 09:27 Dose: 5 mg Naloxone HCl (Narcan) 0.4 mg IVP Q2MIN PRN PRN Reason: Opioid Reversal Stop: 10/12/16 17:18 Omeprazole (Prilosec) 20 mg PO DAILY@0630 NGA PRN Reason: Protocol Stop: 10/13/16 06:31 Last Admin: 04/13/16 09:56 Dose: 20 mg - Imaging and Cardiology Chest Xray: report reviewed Echo: report reviewed (EF 40% with regional wall motion abnormalities. Moderate- severely dilated LA and RA. Severe MR--ischemic appearing in nature. Mild- moderate TR.) - EKG Interpretation EKG results cardiology: personally reviewed (A-Flutter), other (24 hour tele AVG HR 101, A-Flutter) Consult Discharge Plan - Plan Referrals: Tono Roth MD [Non-Partnered Physician] -
--- NOTE | 2016-04-13 12:11 | Electrocardiograph Report ---
[address] [address] Test Date: 2016-04-12 Pat Name: Micah Rodriguez Department: 111 Room: 2N2 Gender: M In Flight Refueling Craftsman: : 1940 Requested By: Apple Friedman Order Number: [id number] Reading MD: Carla Figueroa Measurements Intervals [place] Rate: 118 P: [place]: 0 QRS: 54 QRSD: 91 T: 0 QT: 154 QTc: 224 Interpretive Statements ATRIAL FLUTTER WITH RAPID VENTRICULAR RESPONSE NONSPECIFIC ST \T\ T-WAVE ABNORMALITY ABNORMAL RHYTHM ECG WARNING: DATA QUALITY MAY AFFECT INTERPRETATION V3 AND V6 NOT SUITABLE FOR INTERPRETATION Electronically Signed On 04-13-2016 12:09:57 EST by Carla Figueroa
[2016-04-13] MEDS ORDERED: *HR* Morphine 2 MG/ML SYRINGE IVP PRN (14:51)
[2016-04-13] MEDS: Aspirin Enteric Coated 81 MG Tablet PO SCH (17:15)
[2016-04-13] MEDS: Metoprolol XL (24 HR) Succ 50 MG TAB.ER.24H PO SCH (17:16)
[2016-04-13] MEDS: Furosemide 20 MG/2 ML VIAL IVP SCH (20:58)
[2016-04-14] MEDS ORDERED: *HR* Metoprolol 5 MG/5 ML VIAL IVP ONE (00:41)
[2016-04-14] MEDS ORDERED: 0.9 % Sodium Chloride 500 ML ONE ×2 (01:12→14:38)
[2016-04-14] MEDS: *HR* Enoxaparin 60 MG/0.6 ML SYRINGE SQ SCH ×2 (05:55→17:40)
--- NOTE | 2016-04-14 08:25 | Pre-Sedation Evaluation ---
Pre-sedation evaluation - Pre-sedation checklist Date of procedure: 04/14/16 Procedure: [facility] Recent Vitals: Last Vital Signs Temp 98.3 F 04/14/16 08:14 Pulse 109 04/14/16 08:14 Resp 16 04/14/16 08:14 BP 125/94 04/14/16 08:14 Pulse Ox 97 04/14/16 08:14 H&P (including ROS) documented in medical record: Yes Previous reaction to sedatives/anesthetics: No Dietary Status: NPO after Midnight Airway Assessment: Patient can open mouth completely, TMJ function normal ASA Classification *see protocol: CLASS II-Mild systemic disease Plan of Care: Pt appropriate candidate for procedure/moderate/conscious sedation , Risks/benefits of procedure/sedation discussed w/ patient/family
[2016-04-14] MEDS: Aspirin Enteric Coated 81 MG Tablet PO SCH (09:15)
[2016-04-14] MEDS: Metoprolol XL (24 HR) Succ 50 MG TAB.ER.24H PO SCH (09:16)
--- NOTE | 2016-04-14 09:55 | Event Note ---
Date of Encounter: 04/14/16 Time of Encounter: 08:45 - Cardiology Event Note Patient denies any chest pain. Reports shortness of breath improved. Net I&O records indicate -1525ml. Able to tolerate laying flat during evaluation today. Patient and family agreeable to left heart catheterization for decreased EF. All questions answered. Further recommendations following catheterization today. Discussed and reviewed with Dr. Lee.
[2016-04-14] MEDS: Furosemide 20 MG/2 ML VIAL IVP SCH ×2 (10:06→21:17)
[2016-04-14] MEDS ORDERED: *HR* Heparin 10,000 UNIT/10 ML VIAL ONE (13:25)
[2016-04-14] MEDS ORDERED: Nitroglycerin 1,000 MCG/10 ML VIAL IV ONE (13:25)
[2016-04-14] MEDS ORDERED: Verapamil 5 MG/2 ML VIAL ONE (13:25)
[2016-04-14] MEDS ORDERED: 0.9 % Sodium Chloride 1,000 ML ONE (13:25)
[2016-04-14] MEDS ORDERED: Heparin 1,000 UNITS/500 mL NS 500 ML ONE (13:25)
[2016-04-14] MEDS ORDERED: *HR* FentaNYL (PF) 100 MCG/2 ML VIAL ONE (13:58)
[2016-04-14] MEDS ORDERED: *HR* Midazolam HCl 2 MG/2 ML VIAL ONE (13:58)
--- NOTE | 2016-04-14 14:10 | Internal Med Progress Note ---
Date of Encounter: 04/14/16 Time of Encounter: 12:00 - Assessment and plan (1) Atrial flutter Status: Acute Assessment and plan: New-onset; was able to be weaned off IV Cardizem drip, however had to be restarted last night. Heart rate is well controlled at this time. Continue beta christiane. Hold Lovenox. Plan for left heart catheterization today, will follow-up recommendations. Qualifiers: Atrial flutter type: atypical Qualified Code(s): I48.4 - Atypical atrial flutter (2) Chest pain Status: Acute Assessment and plan: improving; use PRN IV Morphine for recurrent chest pain, likely tachycardia- induced; Qualifiers: Chest pain type: precordial pain Qualified Code(s): R07.2 - Precordial pain (3) Elevated troponin I level Status: Acute (4) Pleural effusion, bilateral Status: Acute (5) Severe mitral regurgitation Status: Chronic Assessment and plan: Further recommendations pending left heart catheterization. Cardiology on board. 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 Improved chest pain and palpitations. No dyspnea, abdominal pain; resting in bed; awaiting left heart catheterization today; - Constitutional Vitals: Temp Pulse Resp BP Pulse Ox 98.3 F 99 14 124/67 99 04/14/16 12:30 04/14/16 12:30 04/14/16 12:30 04/14/16 12:30 04/14/16 12:30 General appearance: Present: A&O X 3, pleasant, no acute distress, answers questions appropriately - Respiratory Respiratory exam: Present: CTAB. Absent: accessory muscle use, rales, rhonchi, wheezes - Cardiovascular Cardiovascular exam: Present: RRR, +S1, +S2. Absent: diastolic murmur, gallop, rubs, systolic murmur - GI/Abdominal GI/Abdominal exam: Present: normal bowel sounds, soft, no peritoneal signs. Absent: distended, tenderness - Extremities Exam Extremities exam: Present: pedal edema (trace B/L ankle edema), warm, radial pulses palpable and symetrical. Absent: calf tenderness, cyanotic Internal Medicine: Result - Labs CBC & Chem 7: 04/13/16 00:28 04/15/16 06:22 - ABG Interpretation ABG results: PT/INR, D-dimer PT 13.2 Seconds (9.4-12.1) H 04/12/16 14:55 Consult Discharge Plan - Plan Additional Instructions: F/up with [facility] in 4-6 weeks Referrals: Tono Roth MD [Non-Partnered Physician] -
--- NOTE | 2016-04-14 14:49 | Invasive Diagnostic Lab Proc ---
Name: Micah Rodriguez Date of Study: 04/14/2016 Date: 1940 Ht: 68.1in Medical Record#: [id number] Age: 76 Wt: 149.91lb Gender: Male BSA: 1.81 Order #: [id number] BMI: 22.72 Physicians Procedure Physician: Madan Lee MD, FACC Referring MD: Referring MD: Staff Name Position Time In Alpa Vernon RT (R) Monitor 01:47 PM Barbra Howell RN Senior Risk Analyst 01:47 PM Kristi Land RT (R) Scrub 01:48 PM Indications Indication Non-Stemi Procedures Performed Procedure L HRT ARTERY/VENTRICLE ANGIO Pre-Procedure Checklist Informed consent is complete signed and on chart. H\\T\\P is on chart. ID band is on and ID verified with patient. Patient NPO for procedure The procedure was described for the patient and questions were answered. Blood Pressure: 139/77 ECG is on chart. Rhythm: Sinus Tachycardia Plan of Care Patient will tolerate the procedure without complications. Adequate level of comfort will be maintained. Hemodynamics will remain stable Patient will recover from procedure without complications. Respiratory function will be maintained. Cardiac rhythm will remain stable. Patient temperature will be maintained. Patient and/or family have verbalized understanding of the procedure. Patient Education Chief Complaint/Reason for Test: Cardiac Cath Developmental Category: Geriatric (65+ years) Developmentally Appropriate for Age: Yes Learning Barriers: None Education Needs: Plan of Care Education Method: Verbal Information Taught: Cardiac Cath Educational Evaluation: Able to repeat information Intravenous Access Time IV Size Location DC'd Fluid/Drip Rate Units RN 01:50 PM 20g 1 /" Patent On Arrival Lt Arm 0.9NaCl 25 ml/hr Allergies No Known Allergies Vital Signs Time BP (mmHg) HR (bpm) O2 Sat. RR (bpm) LOC / % 5 = Fully awake and oriented or at pre-proc level 01:49 PM 125 / 94 109 97 % 16 5 = Fully awake and oriented or at pre-proc level 01:49 PM / % 4 = Oriented but drowsy 02:04 PM / % 4 = Oriented but drowsy 02:20 PM / % 4 = Oriented but drowsy 01:57 PM 139 / 77 120 97 % 02:02 PM 108 / 85 101 95 % 16 02:07 PM 121 / 71 83 97 % 23 02:12 PM 120 / 73 120 97 % 22 02:16 PM 102 / 56 72 95 % 12 02:22 PM 106 / 58 137 95 % 10 02:27 PM 108 / 62 112 96 % 11 02:32 PM 115 / 64 115 97 % 11 Procedural Medications Time Medication Dose Units Method Given By 01:56 PM Oxygen 2 L/min nasal cannula Barbra Howell RN 01:59 PM Versed 2 mg Intravenous Barbra Howell RN 01:59 PM Fentanyl 50 mcg Intravenous Barbra Hwoell RN 02:11 PM Lidocaine 2% 0.5 ml Subcutaneous Madan Lee MD, [facility] 02:13 PM Heparin 4000 units Nitroglycerin 200 mcg Verapamil 2.5 mg Intraarterial Madan Lee MD, [facility] ASA Classification: CLASS II- Mild systemic disease (i.e. well-controlled diabetes, hypertension, asthma, cigarette smoking) Anette Score Preprocedure Postprocedure Activity 2- Moves 4 extremities sustained head lift Activity 2- Moves 4 extremities sustained head lift Circulation 2- SBP +/= 20 points of pre-anesthetic level Circulation 2- SBP +/= 20 points of pre-anesthetic level Consciousness 2- Awake and alert oriented x 3 Consciousness 2- Awake and alert oriented x 3 O2 Saturation 2- Able to maintain O2 satruation of 92% on room air O2 Saturation 2- Able to maintain O2 satruation of 92% on room air Respiratory 2- Able to deep breathe and cough well Respiratory 2- Able to deep breathe and cough well Total Score 10 Total Score 10 Contrast Agent: Isovue Diagnostic Contrast: 76 ml Total Contrast: 76 ml Fluoro Dose: 316 mGy Procedure Log Time Note Enter By 01:47 PM Pt arrived to labor arbitrator hearing office 2 at 13:47 elle 01:47 PM Alpa Vernon RT (R) Position: Monitor Time in: 13:47 marcos 01:47 PM Barbra Howell RN Position: Senior Risk Analyst Time in: 13:47 marcos 01:48 PM Kristi Land RT (R) Position: Scrub Time in: 13:48 [email or web address] 01:48 PM Patient charges- Angio tray pack, Navilyst 3mm J, Pulse Oximetry and ACIST tubing and transducer [email or web address] 01:48 PM Case Delayed No [email or web address] 01:48 PM Physician arrived 13:48 [email or web address] 01:48 PM Meet and junie completed [email or web address] 01:48 PM Sign in performed according to hospital policy. [email or web address] 01:48 PM Procedure start 13:48 [email or web address] 01:48 PM CathStat 01:49 PM Time: 13:49 Patient comfortable and pain free: Yes [email or web address] 01:49 PM Time: 13:49LOC: 5 = Fully awake and oriented or at pre-proc level [email or web address] 01:54 PM Vitals capture started with the following parameters, Patient=Adult, Interval=5 min, Initial Fyrzdlqb=745 mmHg, Deflation Rate=5 mmHg, Cuff placed on Left Arm 01:54 PM Vitals capture stopped. 01:56 PM Time: 13:56 Oxygen on at 2 L/min per nasal cannula by Barbra Howell RN [email or web address] :57 PM Vitals capture started with the following parameters, Patient=Adult, Interval=5 min, Initial Dsquoksy=265 mmHg, Deflation Rate=5 mmHg, Cuff placed on Left Arm 01:57 PM Recorded ECG: HR=93 Condition=Condition 1 :57 PM VO=532 bpm, DWGC=873/77 mmhg, SpO2=97.0 %, Comment=a-flutter 01:59 PM Time: 13:59 Versed 2 mg Intravenous Given by Barbra Howell RN [email or web address] :59 PM Time: 13:59 Fentanyl 50 mcg Intravenous Given by Barbra Howell RN [email or web address] :59 PM Hair removed from procedure site in holding area using clippers. Right wrist prepped with Chloraprep by Kristi Land RT (R), safety strap applied then patient was draped. Skin intact. [email or web address] 02:00 PM Hair removed from procedure site in holding area using clippers. Right groin prepped with Chloraprep by Kristi Land RT (R), safety strap applied then patient was draped. Skin intact. [email or web address] 02:01 PM Vitals capture stopped. 02:01 PM Vitals capture started with the following parameters, Patient=Adult, Interval=5 min, Initial Khfdnmfi=340 mmHg, Deflation Rate=5 mmHg, Cuff placed on Left Arm 02:02 PM YQ=231 bpm, EBJQ=324/85 mmhg, SpO2=95.0 %, Resp=16 B/min, Comment=a-flutter 02:04 PM Time: 13:49LOC: 4 = Oriented but drowsy [email or web address] 02:07 PM Pressure channel 1 zeroed. 02:07 PM HR=83 bpm, CTTT=020/71 mmhg, SpO2=97.0 %, Resp=23 B/min, Comment=a-flutter 02:10 PM Time: 13:55 Patient comfortable and pain free: Yes [email or web address] 02:11 PM Time out performed according to hospital policy [email or web address] 02:11 PM Time: 14:11 0.5 ml Lidocaine 2% to right radial Subcutaneous Given by Madan Lee MD, [facility] [email or web address] 02:12 PM SA=844 bpm, NNAJ=746/73 mmhg, SpO2=97.0 %, Resp=22 B/min, Comment=a-flutter 02:13 PM Access obtained by percutaneous puncture. 6Fr 10cm Terumo Glidesheath sheath placed in right Radial artery. [id number] [email or web address] 02:13 PM Time: 14:13 Patient given 4,000 units Heparin, 200 mcg Nitroglycerin, and 2.5 mg Verapamil Intraarterial by Madan Lee MD, [facility] [email or web address] 02:13 PM 0.035 260cm Navilyst 3mmJ wire [id number] [email or web address] 02:14 PM 5Fr TIG catheter inserted over the wire [facility] [email or web address] 02:14 PM Wire removed [email or web address] 02:15 PM LCA angiography performed in multiple views. [email or web address] 02:15 PM Recorded Pressure: Ao, QN=026, Condition=Condition 1 (Aorta) Ao 65/51/58 02:15 PM Pressure channel 1 zeroed. 02:15 PM Recorded Pressure: Ao, PV=757, Condition=Condition 1 (Aorta) Ao 39/24/32 02:16 PM Recorded Pressure: Ao, JC=869, Condition=Condition 1 (Aorta) Ao 77/63/70 02:16 PM NIBP STAT measurement started. 02:16 PM HR=72 bpm, BKZR=323/56 mmhg, SpO2=95.0 %, Resp=12 B/min, Comment=a-flutter 02:18 PM Catheter repositioned for RCA. [email or web address] 02:19 PM Catheter removed [email or web address] 02:19 PM 5Fr 3DRC catheter inserted over the wire [id number] [email or web address] 02:20 PM Time: 14:04LOC: 4 = Oriented but drowsy [email or web address] 02:20 PM Lesion found in Proximal LAD. Pre Stenosis: 90 Pre FRANCES Flow: 2 [email or web address] 02:20 PM Lesion found in Mid LAD. Pre Stenosis: 100 Pre FRANCES Flow: 2 [email or web address] 02:20 PM Lesion found in Proximal Circumflex. Pre Stenosis: 95 Pre FRANCES Flow: 2 [email or web address] 02:21 PM Lesion found in Mid Circumflex. Pre Stenosis: 95 Pre FRANCES Flow: 2 [email or web address] 02:21 PM Lesion found in Distal Circumflex. Pre Stenosis: 100 Pre FRANCES Flow: 2 [email or web address] 02:21 PM Lesion found in 1st Marginal. Pre Stenosis: 99 Pre FRANCES Flow: 2: Partial Flow/Perfusion (> 1 but < 3) [email or web address] 02:22 PM Catheter removed [email or web address] 02:22 PM 5Fr AR 1 catheter inserted over the wire [id number] [email or web address] 02:22 PM VI=802 bpm, QAXR=053/58 mmhg, SpO2=95.0 %, Resp=10 B/min, Comment=a-flutter 02:23 PM RCA angiography performed in multiple views. [email or web address] 02:23 PM Recorded Pressure: Ao, FJ=385, Condition=Condition 1 (Aorta) Ao 76/62/69 02:24 PM Coronary Dominance: right [email or web address] 02:24 PM Recorded Pressure: Ao, ZM=811, Condition=Condition 1 (Aorta) Ao 99/77/88 02:26 PM Time: 14:10 Patient comfortable and pain free: Yes [email or web address] 02:27 PM FT=309 bpm, UGYX=315/62 mmhg, SpO2=96.0 %, Resp=11 B/min, Comment=a-flutter 02:27 PM Catheter removed [email or web address] 02:27 PM 5Fr Pigtail catheter inserted over the wire C [email or web address] 02:27 PM Catheter selectively placed in left ventricle [email or web address] 02:28 PM Bolus angiogram of left Ventricle complete: 12 ml/sec for a total of36 mls [email or web address] 02:29 PM Pressure channel 1 zero failed. 02:29 PM Recorded Pressure: LV, CI=172, Condition=Condition 1 (Left Ventricle) LV 70/8/9 02:29 PM Recorded Pressure: LV, CH=055, Condition=Condition 1 (Left Ventricle) LV 103/10/18 02:30 PM Recorded Pressure: LV, Ao, LA=858, Condition=Condition 1 (Left Ventricle) LV 94/9/33, (Aorta) Ao 82/59/71 02:30 PM Catheter removed [email or web address] 02:31 PM Procedure completed at 14:30 [email or web address] 02:31 PM Sign out completed: Radiation Dose 316.19 mGy Fluoro Time: 3.8 Isovue 370 - 200ml contrast 76 ml given by Madan Lee MD, [facility]. Complications: NoneCardiac Rehab Consult needed: YesConfirmed administered medications: Yes [email or web address] 02:31 PM Isovue 370 - 200ml,1 Bottle(s) used. [email or web address] 02:31 PM Arterial sheath pulled, Vasc Band closure device used and was Successful S/N. [email or web address] 02:31 PM Post ECG Atrial Flutter [email or web address] 02:31 PM Post Blood Pressure 108/62 [email or web address] 02:32 PM PX=044 bpm, HQSM=499/64 mmhg, SpO2=97.0 %, Resp=11 B/min, Comment=a-flutter 02:33 PM 14:33 Post Pulses Rt Radial 2+ [email or web address] 02:33 PM Information taught Cardiac Cath and Vasc Band [email or web address] 02:33 PM Education needs Procedure, Plan of Care, and Disease Process [email or web address] 02:33 PM Learning barriers :None [email or web address] 02:33 PM Education Methods Verbal [email or web address] 02:33 PM Education evaluation Able to repeat information [email or web address] 02:33 PM Site status No bleeding/hematoma - Rt Wrist as reported by Kristi Land RT (R) at 14:33 [email or web address] 02:33 PM Delay to floor No [email or web address] 02:33 PM Family placed in consult room. [email or web address] 02:33 PM Complications: None [email or web address] 02:33 PM Fluoro Time: 3.8 [email or web address] 02:35 PM Time: 14:20LOC: 4 = Oriented but drowsy [email or web address] 02:40 PM Report given to Angle GUILLAUME Pt taken to E Room #32. 14:40 [email or web address] 02:40 PM Patient out of room: 14:40 [email or web address] 02:41 PM Time: 14:26 Patient comfortable and pain free: Yes [email or web address] Complications Complication None None Hemodynamics Pressures Site Systolic/A Wave Diastolic/V Wave Mean AO 65 51 58 AO 39 24 32 AO 77 63 70 AO 76 62 69 AO 99 77 88 LV 70 8 9 LV 103 10 18 LV 94 9 33 AO 82 59 71 Post Procedure Information Blood Pressure: 108/62 mmHg Rhythm: Atrial Flutter Post procedural instructions were given Closure Device Time Device Success/Fail 04/14/2016 2:36:00 PM vb Successful Site Checks Time Location Status Staff Sheath In? Note 02:33 PM Rt Wrist No bleeding/hematoma Kristi Land RT (R) Pulses Time Site Pre-Procedure Post-Procedure Note 04/14/2016 1:49:00 PM Bilateral radial 2+ 2 04/14/2016 1:50:00 PM Bilateral DP \\T\\ PT 2+ 2 2:33:00 PM Rt Radial 2+ Updated by Alpa Vernon, RT(R) on 04/14/2016 2:43:29 PM electronically signed on 04/14/2016 2:44:07 PM with status of Final
[2016-04-15] MEDS: *HR* Enoxaparin 60 MG/0.6 ML SYRINGE SQ SCH (05:13)
[2016-04-15] MEDS: *HR* Metoprolol 5 MG/5 ML VIAL IVP PRN (05:13)
[2016-04-15 07:12] LABS: BUN/Creatinine Ratio 17 (6-26); Blood Urea Nitrogen 16 mg/dL (8-26); Calcium 7.9 mg/dL (8.6-10.8); Carbon Dioxide 25 mEq/L (19-29); Chloride 106 mEq/L (98-109); Glucose 128 mg/dL (70-99); Osmolality,Calculated 293 (280-300); Potassium 3.4 mEq/L (3.5-4.5); Sodium 140 mEq/L (136-145); eGFR For African Americans > 60 (> 60); eGFR For Non-African Americans > 60 (> 60)
[2016-04-15 07:52] VITALS: BP 109/72
[2016-04-15] MEDS: Furosemide 20 MG/2 ML VIAL IVP SCH (09:50)
[2016-04-15] MEDS: Metoprolol XL (24 HR) Succ 50 MG TAB.ER.24H PO SCH (09:50)
[2016-04-15] MEDS: Aspirin Enteric Coated 81 MG Tablet PO SCH (09:50)
--- NOTE | 2016-04-15 11:03 | Invasive Diagnostic Lab ---
Name: Micah Rodriguez Date of Study: 04/14/2016 Date: 1940 Ht: 173.0 cm /68.1 in Medical Record#: [id number] Age: 76 Wt: 68. kg / 149.91 lb Account/Order#: [id number] Gender: Male BSA: 1.81 Order #: [id number] Fluoro Dose: 316 mGy BMI: 22.72 Procedure Physician: Madan Lee MD, [facility] Referring MD: Referring MD: Procedures Performed: LEFT HEART CATH Indications: Non-Stemi, CHF, Mitral regurgitation Impressions: There is severe multivessel coronary artery disease. The left ventricle is normal and has abnormal contractility EF 40% There is fair quality collateral vessel/vessels from the Distal RCA to the Distal LAD/Circumflex that are visualized. Severe Mitral Regurgitation Recommendations: Plavix (Clopidogrel) 75 mg PO Daily. Optimal medical therapy of patient's disease. History/Risk Factors: Aflutter Cardiomyopathy Severe Mitral Regurg Procedure Access obtained in the right Radial artery by percutaneous puncture Complications: None, None Contrast: Isovue 76ml Closure Device: vb Hemodynamics: Pressures Site Systolic/ A Wave Diastolic/ V Wave End Diastolic/ Mean HR AO 65 51 58 133 AO 39 24 32 134 AO 77 63 70 146 AO 76 62 69 127 AO 99 77 88 106 LV 70 8 9 117 LV 103 10 18 119 LV 94 9 33 126 AO 82 59 71 96 LV Ventriculography Ejection Method: LV Gram Ejection Fraction: 40% 3+ MR Coronary Dominance: right Lesion Findings/Interventions * Left Main Coronary Artery The LMCA is angiographically free of disease. * Left Anterior Descending There is a 90% stenosis in the Proximal LAD followed by FOREIGN BANKNOTE TELLER. Right to left collaterals fill diagonal and portion of the LAD. * Circumflex There is a 95% stenosis in the Proximal Circumflex. There is a 95% stenosis in the Mid Circumflex. There is a 100% stenosis in the Distal Circumflex. There is a 99% stenosis in the 1st Marginal. The lesion has a FRANCES flow of 2. * Right Coronary Artery There is a 60% stenosis in the Mid and distal RCA. There is a 60-70% stenosis in the Right PDA. There is a subtotally occluded subbranch PLB 99% Updated by RT Sarwat(R) on 04/14/2016 2:44:14 PM Madan Lee MD, FACC electronically signed on 04/15/2016 10:57:37 AM with status of Final
[2016-04-15] MEDS ORDERED: Metoprolol XL (24 HR) Succ 25 MG TAB.ER.24H PO ONE (11:07)
--- NOTE | 2016-04-15 11:39 | Cardiology Progress Note ---
Date of Encounter: 04/15/16 Time of Encounter: 11:37 Assessment and Plan (1) CAD (coronary artery disease) Current Visit: Yes Status: Acute [facility] yesterday revealed severe multivessel CAD. EF 40%. Fair quality collaterals from distal RCA to distal LAD/Circ visualized, severe MR. LAD occluded, severe circumflex disease, subtotally occluded subbranch PLB 99%. Continue therapeutic Lovenox, ASA, Statin, BB. Pt denies chest pain, but does report episode of left shoulder pain overnight. Recommend CT surgery evaluation for CABG and mitral valve replacement. Pt and family request transfer to [place]. [place] has accepted pt in transfer. Cardiology is signing off. Reconsult PRN. Follow-up as outpt in 4-6 weeks. Qualifiers: Coronary Disease-Associated Artery/Lesion type: [place] artery Andre[place] vs. transplanted heart: [place] heart Associated angina: angina presence unspecified Qualified Code(s): I25.10 - Atherosclerotic heart disease of [place] coronary artery without angina pectoris (2) CHF exacerbation Current Visit: Yes Status: Acute Echo EF 40% with regional wall motion abnormalities--new diagnosis. CXR with bilateral pleural effusions--R>L. Initial BNP 1030, then 833. Agree with IV Lasix 20mg BID. Cumulative I/O negative 1485mL. Renal function stable. Recommend strict I/O, Na and fluid restriction, daily weights. K 3.4--replace. [facility] yesterday revealed severe disease--LAD occluded with severe circ and PLD disease. Severe MR. Needs evaluated by CT surgery. Family and pt request transfer to [place], who has accepted. Qualifiers: Congestive heart failure type: combined Qualified Code(s): I50.43 - Acute on chronic combined systolic (congestive) and diastolic (congestive) heart failure (3) Cardiomyopathy Current Visit: Yes Status: Acute EF 40% with regional wall motion abnormalities. Ischemic--LHC yesterday with severe CAD. Ischemic MR. Continue BB. Recommend adding LOU-I prior to discharge if renal function allows. Will not add at this time since we are diuresing and transferring for potential CT surgery. Qualifiers: Cardiomyopathy type: unspecified Qualified Code(s): I42.9 - Cardiomyopathy , unspecified (4) Atrial flutter Current Visit: Yes Status: Acute Reviewed with Dr. Lee--appears to be atypical Atrial Flutter. New diagnosis, unsure of onset. Currently on Cardizem gtt at 7.5mg/hr with rates in the 90s-low 100s. 24 hour tele AVG HR 85. Attempted to wean off gtt and increase BB since EF is 40%, but pt went into RVR. Continue Cardizem gtt. On Toprol XL 75mg daily. CHADSVASC currently 4 for CHF, CAD, and age. 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 Therapeutic Lovenox for now since he is awaiting transfer to [place] and evaluation by CT surgery. Will leave MAZE consideration up to [place]. Qualifiers: Atrial flutter type: atypical Qualified Code(s): I48.4 - Atypical atrial flutter (5) Severe mitral regurgitation Current Visit: Yes Status: Chronic Severe MR--ischemic. Mildly thickened MV leaflets with restricted motion of posterior mitral valve leaflet and incomplete leaflet coaptation. [facility] with severe coronary disease. (6) Elevated troponin I level Current Visit: Yes Status: Acute Troponins flat and adynamic in setting of CHF, A-Flutter with RVR. Peak 0.05. Likely was demand ischemia, although pt does have severe CAD on [facility]. Continue Lovenox, ASA, Statin, BB. Discussion w patient/family: The assessment and plan as outlined above was discussed with the patient and/or family members who expressed understanding and agreement. All questions were answered. Thank you for involving us in the care of your patient. Please call with any questions. I will discuss all the above with Dr. Lee and make changes as necessary. Subjective Principal diagnosis: CHF, ICMP, Severe MR, CAD Interval history: [facility] yesterday revealed severe CAD. LAD occluded, severe circ and PLD disease, severe MR. Pt denies any chest pain overnight, but does report left shoulder pain overnight that has since subsided. Remains in A-Flutter on Cardizem gtt. Rate 90s-low 100s at bedside. Family requesting transfer to [place] for CT surgery evaluation. Objective Vital Signs, Last 4 Hours Pulse Resp BP Pulse Ox 04/15/16 08:00 98 04/15/16 07:49 59 16 109/72 98 Vital Signs Temp Pulse Resp BP Pulse Ox 04/15/16 08:00 98 04/15/16 07:49 59 16 109/72 98 04/15/16 05:21 98.7 F 75 16 104/78 99 04/15/16 00:36 98.4 F 112 16 126/84 99 04/14/16 22:00 97.5 F L 76 18 114/74 97 04/14/16 16:58 97.4 F L 97 14 111/81 96 04/14/16 16:00 98 14 110/68 04/14/16 15:45 14 121/66 04/14/16 14:56 106 14 124/86 94 L 04/14/16 12:30 98.3 F 99 14 124/67 99 Intake and Output 04/14/16 04/15/16 04/15/16 23:59 07:59 15:59 Intake Total 0 / 0 580.6 / 580.6 360 / 360 Output Total 1000 / 1000 Balance 0 / 0 -419.4 / -419.4 360 / 360 Intake: IV Fluids 80.6 / 80.6 Cardizem 125 MG In 80.6 / 80.6 Dextrose 5% 100 ML @ 5 MG /HR 5 mls/hr IVC .Q24H NGA Rx#:[id number] Oral 0 / 0 500 / 500 360 / 360 Output: Urine 1000 / 1000 Other: Meal Breakfast Percent of Meal Consumed 100% # Voids 0 0 Weight 62.5 kg Patient Weight 04/15/16 23:59 Weight 62.5 kg General: Conversant, No Apparent Distress HEENT: Atraumatic, Normocephaly, Mucus Membranes Moist Neck: No JVD, Normal carotid pulses Cardiac: Other (irregular) Lungs: Normal Breath Sounds, No Wheeze, Rales, Rhonchi Neuro: Alert and responsive, No focal deficits noted Abdomen: Soft, Non-Tender Skin: No rashes noted on visualized skin Musculoskeletal: No Chest Wall Tenderness Extremities: No Clubbing, No Cyanosis, No Edema, Normal Pulses Results 04/13/16 00:28 04/15/16 06:22 Lab Results 04/15/16 06:22 Sodium 140 Potassium 3.4 L Chloride 106 Carbon Dioxide 25 BUN 16 Creatinine 0.96 Glucose 128 H Calcium 7.9 L BMP 04/15/16 Range/Units 06:22 Sodium 140 (136-145) mEq/L Potassium 3.4 L (3.5-4.5) mEq/L Chloride 106 (98-109) mEq/L Carbon Dioxide 25 (19-29) mEq/L BUN 16 (8-26) mg/dL Creatinine 0.96 (0.72-1.25) mg/dL Glucose 128 H (70-99) mg/dL Calcium 7.9 L (8.6-10.8) mg/dL Active Medications Acetaminophen (Tylenol) 650 mg PO Q6HR PRN PRN Reason: Mild Pain (1-3) Stop: 10/12/16 17:18 Aspirin (Aspirin Ec) 81 mg PO DAILY NGA Stop: 10/13/16 09:01 Last Admin: 04/15/16 09:50 Dose: 81 mg Atorvastatin Calcium (Lipitor) 20 mg PO HS NGA Stop: 10/12/16 21:01 Last Admin: 04/14/16 21:17 Dose: 20 mg Docusate Sodium (Colace) 100 mg PO BID PRN PRN Reason: Constipation Stop: 10/12/16 17:18 Enoxaparin Sodium (Lovenox) 60 mg 1 mg/kg (60 mg) SQ Q12H NGA PRN Reason: Protocol Stop: 10/12/16 18:01 Last Admin: 04/15/16 05:13 Dose: 60 mg Furosemide (Lasix) 20 mg IVP BID [facility] Stop: 10/13/16 21:01 Last Admin: 04/15/16 09:50 Dose: 20 mg Diltiazem HCl 125 mg/ Dextrose 125 mls @ 5 mls/hr IVC .Q24H NGA; 5 MG/HR PRN Reason: Protocol Stop: 10/14/16 01:16 Last Infusion: 04/15/16 05:09 Dose: 7.5 mg/hr, 7.5 mls/hr Metoprolol Succinate (Toprol Xl) 25 mg PO DAILY NGA Stop: 10/16/16 09:01 Metoprolol Succinate (Toprol Xl) 50 mg PO DAILY [facility] Stop: 10/16/16 09:01 Metoprolol Tartrate (Lopressor) 5 mg IVP Q6HR PRN PRN Reason: HR>120 Stop: 10/13/16 06:57 Last Admin: 04/15/16 05:13 Dose: 5 mg Morphine Sulfate (Morphine Sulfate) 2 mg IVP Q4H PRN PRN Reason: Chest Pain Stop: 10/13/16 15:01 Naloxone HCl (Narcan) 0.4 mg IVP Q2MIN PRN PRN Reason: Opioid Reversal Stop: 10/12/16 17:18 Potassium Chloride (Potassium Chloride) 10 meq PO DAILY NGA Stop: 10/15/16 11:16 - Imaging and Cardiology Echo: report reviewed Cardiac cath: report reviewed - EKG Interpretation EKG results cardiology: other (24 hour tele AVG HR 85--A-Flutter, 8 beat run NSVT) Consult Discharge Plan - Plan Referrals: Tono Roth MD [Non-Partnered Physician] -
[2016-04-15] MEDS ORDERED: 0.9 % Sodium Chloride 500 ML ONE (11:49)
--- NOTE | 2016-04-15 14:43 | Discharge Summary ---
Date of Encounter: 04/15/16 Time of Encounter: 11:45 - Discharge Diagnosis (1) Atrial flutter Priority: Primary Status: Acute Qualifiers: Atrial flutter type: atypical Qualified Code(s): I48.4 - Atypical atrial flutter (2) Chest pain Priority: Primary Status: Acute Qualifiers: Chest pain type: precordial pain Qualified Code(s): R07.2 - Precordial pain (3) Elevated troponin I level Priority: Primary Status: Acute (4) Pleural effusion, bilateral Priority: Primary Status: Acute (5) Severe mitral regurgitation Priority: Primary Status: Chronic (6) Congestive heart failure Priority: Primary Status: Chronic Qualifiers: Congestive heart failure type: systolic Congestive heart failure chronicity : acute Qualified Code(s): I50.21 - Acute systolic (congestive) heart failure - Discharge Medications Home Medications: Aspirin Enteric Coated [Aspirin EC] 81 mg PO DAILY tablet. 04/15/16 [Rx] Atorvastatin [Lipitor] 20 mg PO HS tablet 04/15/16 [Rx] Enoxaparin [Lovenox] 60 mg SQ Q12H syringe 04/15/16 [Rx] Furosemide [Lasix] 20 mg IVP BID vial 04/15/16 [Rx] Metoprolol XL (24 HR) Succ [Toprol Xl] 25 mg PO DAILY tab.er.24h 04/15/16 [Rx] Metoprolol XL (24 HR) Succ [Toprol Xl] 50 mg PO DAILY tab.er.24h 04/15/16 [Rx] Metoprolol [Lopressor] 5 mg IVP Q6HR PRN #0 vial 04/15/16 [Rx] Potassium Chloride 10 meq PO DAILY tab.er.prt 04/15/16 [Rx] Allergies/Adverse Reactions: Allergies No Known Allergies Allergy (Verified 04/12/16 14:27) Procedures/tests Complete & Pending: Procedures Performed prior 72 hours Category Date Time Status CL Cardiac Catheterization [CL] Routine [place] [employer] 04/14/16 09:53 Completed ECG 12 lead ECG [ECG] Routine Y 04/12/16 23:06 Completed ECG 12 lead ECG [ECG] Routine Y 04/13/16 07:08 Completed EV echocardiogram Routine Y 04/13/16 17:23 Completed Date of admission: 04/12/16 17:17 Primary care physician: PCP NO Discharging clinician: Rosey Friedman Anticipated date of discharge: 04/15/16 - Patient Status Disposition: Transfer Critical Access Hosp Condition: Fair Functional capacity at discharge: independent ambulation Overall status at discharge: patient is progressing back to baseline - Discharge Instructions Follow Up With: Tono Roth MD [Non-Partnered Physician] - Additional Instructions: F/up with [facility] in 4-6 weeks - Diet and Activity Diet: low fat, low cholesterol, low salt diet, other (fluid restriction to 1.2L/ day) Hospital course: Mr. Rodriguez is a 76 year old male with no known medical hisotry was admitted with worsening shortness of breath and chest tightness. He was noted to be in new- onset atrial fibrillation with RVR and started on IV Cardizem drip. He sustained an episode of excruciating chest pain and tachycardia during admission , which improved with IV Morphine, Metoprolol and Digoxin. Cardiology was consulted and patient underwent left heart catheterization. Echocardiogram showed 40% EF with regional WMAs, severe MR. LHC showed severe multivessel disease and patient is recommended higher level of care for possible bypass surgery and MV replacement. Patient is accepted to [facility] per Cardiology and is medically stable for transfer. - Time Spent with Patient Total time spent providing and/or coordinating discharge services: Greater than 30 minutes (45 min) - Constitutional Vitals: Temp Pulse Resp BP Pulse Ox 98.7 F 59 16 109/72 98 04/15/16 05:21 04/15/16 07:49 04/15/16 07:49 04/15/16 07:49 04/15/16 08:00 General appearance: Present: A&O X 3, answers questions appropriately - Respiratory Respiratory exam: Present: CTAB. Absent: accessory muscle use, rales, rhonchi, wheezes - Cardiovascular Cardiovascular exam: Present: RRR, +S1, +S2. Absent: diastolic murmur, gallop, rubs, systolic murmur
[2016-04-16] MEDS ORDERED: Metoprolol XL (24 HR) Succ 50 MG TAB.ER.24H PO SCH (09:00)
[2016-04-16] MEDS ORDERED: Metoprolol XL (24 HR) Succ 25 MG TAB.ER.24H PO SCH (09:00)
== END 2016-04-15 15:51 | disposition critical access hospital (66) | DRG 286 ==
LOC: EMEROO 14:05 → 2NENU 14:05
PROVIDERS: ADMIT Internal Medicine; ATTEND Internal Medicine